=== PATIENT | male | born 1985 | race Caucasian/White ===

== ENCOUNTER → 2022-03-16 10:12 | Outpatient (BNVA) | payer BC, SELFPAY | PROVIDERS: PCP Clinical Nurse Specialist Adult Health; Visit Provider Clinical Nurse Specialist Adult Health | DX: F32.0 Major depressive disorder, single episode, mild (principal); I10 Essential (primary) hypertension | CPT/HCPCS: 80053; 85025 ==

== ENCOUNTER → 2022-08-15 15:15 | Outpatient (BNVA) | payer BC, SELFPAY | PROVIDERS: PCP Clinical Nurse Specialist Adult Health; Visit Provider Nurse Practitioner Family | DX: J98.8 Other specified respiratory disorders (principal); J40 Bronchitis, not specified as acute or chronic | CPT/HCPCS: 87400 ==

== ENCOUNTER 2024-04-02 17:26 | Emergency (ER) | payer BC, SELFPAY ==
[2024-04-02 17:30] VITALS: BP 157/104; PULSE 78; TEMP 36.9; O2SAT 98; BMI 40.1
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
[2024-04-02] MEDS: orphenadrine 30 mg/mL Inj 2 mL 60 MG IM (17:56)
[2024-04-02] MEDS: ketorolac 60 mg/2 mL INJ IM (17:56)
[2024-04-02 19:10] VITALS: BP 129/81; PULSE 87; RESP 16; O2SAT 97
== END 2024-04-02 19:08 | disposition home or self-care (01) ==
PROVIDERS: Emergency Provider Physician Assistant; PCP Clinical Nurse Specialist Adult Health
DX: S46.912A Strain of unspecified muscle, fascia and tendon at shoulder and upper arm level, left arm, initial encounter (principal); V89.2XXA Person injured in unspecified motor-vehicle accident, traffic, initial encounter; I10 Essential (primary) hypertension; F17.220 Nicotine dependence, chewing tobacco, uncomplicated
CPT/HCPCS: 73030; 96372; 99284; J1885; J2360